=== PATIENT | male | born 1965 | race Caucasian/White ===

== ENCOUNTER → 2016-07-23 | Outpatient (CLI) | payer OTHER | LOC: RAD 14:48 | PROVIDERS: ATTEND Physician Assistant | DX: R51 Headache (principal) | CPT/HCPCS: 70450 ==

== ENCOUNTER 2016-08-06 04:49 | Emergency (ER) | payer OTHER, BC ==
[2016-08-06] MEDS ORDERED: KETOROLAC TROMETHAMINE 60 MG/2 ML SDV IM ONE (07:47)
[2016-08-06] MEDS ORDERED: DIPHENHYDRAMINE HCL 50 MG CAPSULE PO ONE (07:47)
[2016-08-06] MEDS ORDERED: PROCHLORPERAZINE MALEATE 10 MG TABLET PO ONE (07:47)
--- NOTE | 2016-08-06 07:52 | ER Document Report ---
ED General - General Chief Complaint: Headache Stated Complaint: HEAD INJURY Mode of Arrival: Ambulatory Information source: Patient Notes: 50-year-old male presents to weeks after head injury where he struck his head on concrete. Patient was initially evaluated by his primary care physician noted to have no acute life-threatening issues, was given follow-up with neurologist. Patient has been unable to see the neurologist yet due to scheduling issues. Patient admits to intermittent blurry vision denies any nausea vomiting or neurological deficits admits to constant headache TRAVEL OUTSIDE OF THE U.S. IN LAST 30 DAYS: No - HPI Onset: Other Onset/Duration: Persistent Quality of pain: Achy Severity: Mild Pain Level: 1 Associated symptoms: Headache Exacerbated by: Denies Relieved by: Denies Similar symptoms previously: Yes Recently seen / treated by doctor: Yes - Related Data Allergies/Adverse Reactions: Penicillins Allergy (Verified 12/12/13 12:10) acetaminophen [From Percocet] Adverse Reaction (Verified 08/06/16 05:00) oxycodone [From Percocet] Adverse Reaction (Verified 08/06/16 05:00) Past Medical History - Social History Smoking Status: Never Smoker Cigarette use (# per day): No Chew tobacco use (# tins/day): No Smoking Education Provided: No Frequency of alcohol use: Occasional Drug Abuse: None Family History: Reviewed & Not Pertinent Patient has suicidal ideation: No Patient has homicidal ideation: No Renal/ Medical History: Denies: Hx Peritoneal Dialysis Review of Systems - Review of Systems Notes: REVIEW OF SYSTEMS: CONSTITUTIONAL : Denies fever, chills, or sweats. Denies recent illness. EENT: Denies eye, ear, throat, or mouth pain or symptoms. Denies nasal or sinus congestion or discharge. Denies throat, tongue, or mouth swelling or difficulty swallowing. CARDIOVASCULAR: Denies chest pain. Denies palpitations or racing or irregular heart beat. Denies ankle edema. RESPIRATORY: Denies cough, cold, or chest congestion. Denies shortness of breath, difficulty breathing, or wheezing. GASTROINTESTINAL: Denies abdominal pain or distention. Denies nausea, vomiting , or diarrhea. Denies blood in vomitus, stools, or per rectum. Denies black, tarry stools. Denies constipation. GENITOURINARY: Denies difficulty urinating, painful urination, burning, frequency, blood in urine, or discharge. MUSCULOSKELETAL: Denies back or neck pain or stiffness. Denies joint pain or swelling. SKIN: Denies rash, lesions or sores. HEMATOLOGIC : Denies easy bruising or bleeding. LYMPHATIC: Denies swollen, enlarged glands. NEUROLOGICAL: Admits to headache blurry vision PSYCHIATRIC: Denies anxiety or stress. Denies depression, suicidal ideation, or homicidal ideation. ALL OTHER SYSTEMS REVIEWED AND NEGATIVE. Dictation was performed using [employer] voice recognition software PHYSICAL EXAMINATION: GENERAL: Well-appearing, well-nourished and in no acute distress. HEAD: Atraumatic, normocephalic. EYES: Pupils equal round and reactive to light, extraocular movements intact, sclera anicteric, conjunctiva are normal. ENT: Nares patent, oropharynx clear without exudates. Moist mucous membranes. NECK: Normal range of motion, supple without lymphadenopathy LUNGS: Breath sounds clear to auscultation bilaterally and equal. No wheezes rales or rhonchi. HEART: Regular rate and rhythm without murmurs ABDOMEN: Soft, nontender, nondistended abdomen. No guarding, no rebound. No masses appreciated. Musculoskeletal: Normal range of motion, no pitting or edema. No cyanosis. NEUROLOGICAL: Cranial nerves grossly intact. Normal speech, normal gait. Normal sensory, motor exams PSYCH: Normal mood, normal affect. SKIN: Warm, Dry, normal turgor, no rashes or lesions noted. Physical Exam - Vital signs Vitals: Temp Pulse Resp BP Pulse Ox 97.7 F 83 16 173/105 H 100 08/06/16 04:57 08/06/16 04:57 08/06/16 04:57 08/06/16 04:57 08/06/16 04:57 Course - Re-evaluation Re-evalutation: 08/06/16 07:[address] of the head noted no acute abnormality. I believe patient is having concussion-like syndrome secondary to the head injury. He will be treated with medication here, I did contact the primary care office requesting that they see the patient sooner After performing a Medical Screening Examination, I estimate there is LOW risk for ACUTE GLAUCOMA, TEMPORAL ARTERITIS, MENINGITIS, INCRANIAL HEMORRHAGE, or ISCHEMIC STROKE thus I consider the discharge disposition reasonable. The patient and I have discussed the diagnosis and risks, and we agree with discharging home with close follow-up with the understanding that symptoms and presentations can change. We also discussed returning to the Emergency Department immediately if new or worsening symptoms occur. We have discussed the symptoms which are most concerning (e.g., changing or worsening symptoms, new numbness or weakness, vomiting, fever) that necessitate immediate return. - Vital Signs Vital signs: Temp Pulse Resp BP Pulse Ox 97.7 F 87 16 159/98 H 100 08/06/16 04:57 08/06/16 04:58 08/06/16 04:57 08/06/16 04:58 08/06/16 04:57 Discharge - Discharge Clinical Impression: Concussion Qualifiers: Encounter type: initial encounter Loss of consciousness presence/duration: without LOC Qualified Code(s): S06.0X0A - Concussion without loss of consciousness, initial encounter Head injury Qualifiers: Encounter type: initial encounter Qualified Code(s): S09.90XA - Unspecified injury of head, initial encounter Condition: Stable Disposition: HOME, SELF-CARE Instructions: Headache ([facility]) Additional Instructions: Follow up with your physician tomorrow for further care or return to the ED IMMEDIATELY if symptoms worsen or new concerns occur Prescriptions: Diphenhydramine HCl [Benadryl 50 mg Capsule] 1 cap PO Q6 PRN #14 capsule PRN Reason: Promethazine HCl [Phenergan 25 mg Tablet] 25 - 50 mg PO ASDIR PRN #12 tablet PRN Reason:
[2016-08-06 08:28] VITALS: BP 176/105
== END 2016-08-06 08:32 | disposition home or self-care (01) ==
LOC: ER 04:49
DX: S06.0X0A Concussion without loss of consciousness, initial encounter (principal); R51 Headache; H53.8 Other visual disturbances; W22.09XA Striking against other stationary object, initial encounter; Y99.0 Civilian activity done for income or pay; Z88.0 Allergy status to penicillin; Z88.6 Allergy status to analgesic agent
CPT/HCPCS: 99284; 96372; 70450; J1885; S0183

== ENCOUNTER 2016-12-07 13:47 | Emergency (ER) | payer OTHER ==
--- NOTE | 2016-12-07 14:23 | ER Document Report ---
ED Medical Screen (RME) - General Chief Complaint: Syncope Stated Complaint: DIZZINESS Time Seen by Provider: 12/07/16 14:13 Mode of Arrival: Ambulatory Information source: Patient, Relative TRAVEL OUTSIDE OF THE U.S. IN LAST 30 DAYS: No - HPI Onset: This morning Onset/Duration: Sudden Context: GOT UP TO TAKE USUAL A.M. MEDS, HAD SUDDEN UNEXPECTED SYNCOPAL EPISODE. Quality of pain: No pain Severity: None Associated Symptoms: Dizzy/lightheaded. denies: Chest pain, Headache, Shortness of breath Exacerbated by: Denies Relieved by: Denies Similar symptoms previously: No Recently seen / treated by doctor: No - Related Data Allergies/Adverse Reactions: Penicillins Allergy (Verified 12/07/16 14:00) acetaminophen [From Percocet] Adverse Reaction (Verified 12/07/16 14:00) oxycodone [From Percocet] Adverse Reaction (Verified 12/07/16 14:00) Past Medical History - General Information source: Patient, Relative - Past Medical History Cardiac Medical History: Reports: None, Hx Hypercholesterolemia, Hx Hypertension Renal/ Medical History: Denies: Hx Peritoneal Dialysis Musculoskeltal Medical History: Reports Hx Arthritis Psychiatric Medical History: Reports: None Traumatic Medical History: Reports: Other - CONCUSSION 07/23/2016 - Immunizations Hx Diphtheria, Pertussis, Tetanus Vaccination: Yes Review of Systems - Review of Systems Constitutional: See HPI EENT: No symptoms reported Cardiovascular: Syncope Respiratory: No symptoms reported Gastrointestinal: No symptoms reported Musculoskeletal: No symptoms reported Neurological/Psychological: See HPI Physical Exam - Vital signs Vitals: Temp Pulse Resp BP Pulse Ox 97.6 F 71 22 H 141/76 H 100 12/07/16 13:50 12/07/16 13:50 12/07/16 13:50 12/07/16 13:50 12/07/16 13:50 Interpretation: Hypertensive, Tachypneic. No: Hypoxic - General General appearance: Appears well, Alert In distress: None - HEENT Head: No: Atraumatic - TENDER & CONTUSED L. UPPER / LATERAL ORBITAL RIM, Open wounds Eyes: Normal Conjunctiva: Normal Ears: Normal Nasal: Normal Mouth/Lips: Normal Pharynx: Normal Neck: Normal - Respiratory Respiratory status: No respiratory distress - Cardiovascular Rhythm: Regular Heart sounds: Normal auscultation - Abdominal Inspection: Normal - Extremities General upper extremity: Normal inspection General lower extremity: Normal inspection. No: Edema - Neurological Neuro grossly intact: Yes Cognition: Normal Orientation: AAOx4 - Psychological Associated symptoms: Normal affect, Normal mood - Skin Skin Temperature: Warm Skin Moisture: Dry Skin Color: Normal Skin Turgor: Elastic Course - Vital Signs Vital signs: Temp Pulse Resp BP Pulse Ox 97.6 F 71 22 H 141/76 H 100 12/07/16 13:50 12/07/16 13:50 12/07/16 13:50 12/07/16 13:50 12/07/16 13:50
[2016-12-07 14:26] LABS: ABSOLUTE EOSINOPHILS # (AUTO) 0.1 10^3/uL (0.0-0.6); ABSOLUTE LYMPHOCYTES (AUTO) 1.1 10^3/uL (0.5-4.7); ABSOLUTE MONOCYTES (AUTO) 0.7 10^3/uL (0.1-1.4); ABSOLUTE NEUT (AUTO) 5.1 10^3/uL (1.7-8.2); BASOPHILS % (AUTO) 0.2 % (0-2); HEMATOCRIT 37.3 % (37.9-51.0); HEMOGLOBIN 12.7 g/dL (13.5-17.0); HGB HCT DIFFERENCE 0.8; LYMPHOCYTES % (AUTO) 15.4 % (13-45); MEAN CORPUSCULAR HEMOGLOBIN 31.1 pg (27.0-33.4); MEAN CORPUSCULAR HGB CONC 33.9 g/dL (32.0-36.0); MEAN CORPUSCULAR VOLUME 92 fl (80-97); MONOCYTES % (AUTO) 10.3 % (3-13); RED BLOOD COUNT 4.08 10^6/uL (4.35-5.55); RED CELL DISTRIBUTION WIDTH 12.6 % (11.5-14.0); SEGMENTED NEUTROPHILS % (AUTO) 73.1 % (42-78)
[2016-12-07 14:32] LABS: APPEARANCE,URINE CLEAR; BILIRUBIN,URINE NEGATIVE (NEGATIVE); GLUCOSE, URINE 50 mg/dL (NEGATIVE); KETONES,URINE TRACE mg/dL (NEGATIVE); LEUKOCYTE ESTERASE,URINE NEGATIVE (NEGATIVE); NITRITE,URINE NEGATIVE (NEGATIVE); PROTEIN,URINE NEGATIVE (NEGATIVE); URINE SPECIFIC GRAVITY 1.018; UROBILINOGEN,URINE NEGATIVE mg/dL (<2.0)
[2016-12-07 14:49] LABS: ALANINE AMINOTRANSFERASE 55 U/L (21-72); ALBUMIN 4.4 g/dL (3.5-5.0); ALKALINE PHOSPHATASE 81 U/L (38-126); ANION GAP 11 (5-19); ASPARTATE AMINO TRANSFERASE 53 U/L (17-59); BILIRUBIN,DIRECT 0.4 mg/dL (0.0-0.4); BILIRUBIN,TOTAL 0.9 mg/dL (0.2-1.3); BLOOD UREA NITROGEN 18 mg/dL (7-20); CALCIUM 9.3 mg/dL (8.4-10.2); CARBON DIOXIDE 27 mmol/L (22-30); CHLORIDE 102 mmol/L (98-107); CREATINE KINASE 215 U/L (55-170); CREATININE RESULT 0.84 mg/dL (0.52-1.25); GLUCOSE 168 mg/dL (75-110); POTASSIUM 5.4 mmol/L (3.6-5.0); SODIUM 140.2 mmol/L (137-145); TOTAL PROTEIN 7.1 g/dL (6.3-8.2)
--- NOTE | 2016-12-07 14:53 | ER Document Report ---
ED Dizziness/Weakness - General Mode of Arrival: Ambulatory Information source: Patient TRAVEL OUTSIDE OF THE [place] IN LAST 30 DAYS: No - HPI Patient complains to provider of: Syncope Onset: Other - Refer to HPI notes <TIM SEPULVEDA - Last Filed: 12/07/16 15:55> <VLADLANDON - Last Filed: 12/08/16 22:50> - General Chief Complaint: Syncope Stated Complaint: DIZZINESS Time Seen by Provider: 12/07/16 14:13 Notes: Patient is a 51 year old male presenting to the emergency department after syncope episode. Patient states he passed out this morning and hit his head and right shoulder. Patient also has dizziness. Patient only remembers getting up this morning to eat breakfast and take his medications. Patient states he felt dizzy and remembers taking his medications and then remembers waking up on the floor in the hallway with his over. Spouse states she came to him in about 30 seconds and did not see any seizure activity. Patient took about 3-4 minutes to come to after the syncopal event. Spouse states the patient was clammy, sweaty, and asking what happened. Patient was leaning on spouse afterwards and had unsteady gait. Patient was fine last night with no symptoms. Patient has been having headaches due to a previous concussion and he currently complains of a headache now. Patient had an accident at work in July where he hit his head on the ground and a washing machine landed on top of his head and he got a concussion. Patient has seen a neurologist for this, he has had an MRI, and has a follow up with a TBI doctor on . Patient has recurrent headaches and states his head is pounding bad right now. Patient has a knot on his head from falling and also complains of right shoulder pain. Patient's last PO was this morning. PCP is Dr. Waggoner in [place]. (TIM SEPULVEDA) - Related Data Allergies/Adverse Reactions: Penicillins Allergy (Verified 12/07/16 14:00) acetaminophen [From Percocet] Adverse Reaction (Verified 12/07/16 14:00) oxycodone [From Percocet] Adverse Reaction (Verified 12/07/16 14:00) Past Medical History - General Information source: Patient, Relative - Social History Smoking Status: Unknown if Ever Smoked Family History: None Patient has suicidal ideation: No Patient has homicidal ideation: No - Past Medical History Cardiac Medical History: Reports: Hx Hypercholesterolemia, Hx Hypertension Endocrine Medical History: Reports: Hx Diabetes Mellitus Type 1 Musculoskeltal Medical History: Reports Hx Arthritis Traumatic Medical History: Reports: Other - CONCUSSION 07/23/2016 Past Surgical History: Reports: None - Immunizations Hx Diphtheria, Pertussis, Tetanus Vaccination: Yes <TIM SEPULVEDA - Last Filed: 12/07/16 15:55> Review of Systems - Review of Systems Constitutional: No symptoms reported EENT: No symptoms reported Cardiovascular: No symptoms reported Respiratory: No symptoms reported Gastrointestinal: No symptoms reported Genitourinary: No symptoms reported Male Genitourinary: No symptoms reported Musculoskeletal: See HPI Skin: No symptoms reported Hematologic/Lymphatic: No symptoms reported Neurological/Psychological: See HPI, Lost consciousness, Headaches -: Yes All other systems reviewed and negative <TIM SEPULVEDA - Last Filed: 12/07/16 15:55> Physical Exam <TIM SEPULVEDA - Last Filed: 12/07/16 15:55> <LANDON CHU - Last Filed: 12/08/16 22:50> - Vital signs Vitals: Temp Pulse Resp BP Pulse Ox 97.6 F 71 22 H 141/76 H 100 12/07/16 13:50 12/07/16 13:50 12/07/16 13:50 12/07/16 13:50 12/07/16 13:50 - Notes Notes: GENERAL: Alert, interacts well. Mild distress. HEAD: Normocephalic, small hematoma consistent with fall. EYES: Appear normal. Pupils equal, round, and reactive to light. ENT: Moist mucus membranes, tongue midline. NECK: Full range of motion. Supple. Trachea midline. LUNGS: Clear to auscultation bilaterally, no wheezes, rales, or rhonchi. No respiratory distress. HEART: Regular rate and rhythm. No murmurs, gallops, or rubs. ABDOMEN: Soft, non-tender. Non-distended. Normal bowel sounds. EXTREMITIES: Moves all 4 extremities spontaneously. Tenderness to palpation over the right posterior shoulder and scapula. Normal strength. No edema. NEUROLOGICAL: Alert and oriented x3. Normal speech. No focal neurological deficits. GSC 15. PSYCH: Normal affect, normal mood. SKIN: Warm, dry, normal turgor. No rashes or lesions noted. (COCOTIM) Course - Laboratory Result Diagrams: 12/07/16 14:05 12/07/16 14:05 <TIM SEPULVEDA - Last Filed: 12/07/16 15:55> - Laboratory Result Diagrams: 12/07/16 14:05 12/07/16 14:05 <LANDON CHU - Last Filed: 12/08/16 22:50> - Re-evaluation Re-evalutation: 12/07/16 16:05 Presents to the emergency department chief complaint syncope. According to the and he got up his insulin dependent diabetic weight made himself some breakfast felt a little lightheaded dizzy did felt that way before bed as well and next thing you know he said he hit the ground. She heard a thump and came to see him. She said his eyes rolled in the back of his head he was not seizing there is no loss of bowel or bladder function and she sat him up got him up with assistance and said he regained back to normal about 3-4 minutes later. There is no strokelike symptoms slurred speech weakness on one side of body versus the other is able to ambulate at that point. Back in July of this year he suffered a brain injury after falling off the back of an 18 keating and then having a washing machine hit him in the head as well. He is been unable to work since then has been caring chronic daily headaches has seen a neurologist had an MRI. He is scheduled to see a TBI specialist on . He states the headache he is having right now is the same character quality frequency duration is previous once blood pressure stable vitals are stable he does not complain any chest pain shortness of breath usual nauseated and said that has been going well with a head injury as well. He complained of some shoulder pain he was tender in the back of the shoulder region no obvious deformity good pulses and perfusion x-ray showed 2 rib fractures on the right he did not have any pain in that area until I palpated on it. The shoulder itself was fine EKG was nonacute chest x-ray was negative. Do not clinically think that this was an [place] dissection or pulmonary embolism. In some medicine that he can take for the shoulder discomfort he can follow primary care physician on Friday PBI specialist on and discuss specific reasons for ED return sooner may need need outpatient workup for seizure and this is not classic in nature. (LANDON CHU) - Vital Signs Vital signs: Temp Pulse Resp BP Pulse Ox 97.8 F 64 17 132/87 H 98 12/07/16 16:30 12/07/16 15:14 12/07/16 16:30 12/07/16 16:30 12/07/16 16:30 - Laboratory Laboratory results interpreted by me: 12/07/16 12/07/16 12/07/16 14:05 14:05 14:05 RBC 4.08 L Hgb 12.7 L Hct 37.3 L Potassium 5.4 H Glucose 168 H Creatine Kinase 215 H Urine Glucose (UA) 50 H Urine Ketones TRACE H Urine Ascorbic Acid 40 H Critical Care Note - Critical Care Note Total time excluding time spent on procedures (mins): 45 <LANDON CHU - Last Filed: 12/08/16 22:50> Discharge <TIM SEPULVEDA - Last Filed: 12/07/16 15:55> <LANDON CHU - Last Filed: 12/08/16 22:50> - Discharge Clinical Impression: rib fractures Syncope Qualifiers: Syncope type: unspecified Qualified Code(s): R55 - Syncope and collapse Condition: Stable Disposition: HOME, SELF-CARE Additional Instructions: Rib Injuries and Fractures You have been diagnosed as having either bruised or broken ribs. These two injuries are treated in the same way. It will usually take four to six weeks for these injured ribs to heal. Sometimes, rib belts or anesthetic injections of the chest wall help reduce the pain. If you are using a rib belt, you should cough or take a deep breath at least every hour or two to prevent lung complications. You should not engage in any strenuous physical activity until released by your physician. The usual rule is "if it hurts, don't do it." Rib fractures can lead to serious lung complications including lung collapse, hemorrhage, and pneumonia. You should call the physician or return at once if any of the following occur: (1) Fever or chills. (2) Persistent cough, coughing up blood, or shortness of breath. (3) Increasing pain. (4) Weakness, lightheadedness, or fainting. Syncopal Episode Syncope (fainting or near-fainting) can occur from many different health problems. Or it can be a simple fainting spell requiring no treatment. It is safe for you to go home, but further evaluation will likely be necessary. Your work-up may include tests for internal bleeding, heart disease, medication problems, or near-strokes. Tests are not always required, however, depending on the nature of your problem. The warning signs of an impending faint include: dizziness, lightheadedness , nausea, hot flashes, tingling, and weakness. If this happens, lay down and put your feet up, then wait until all of these symptoms have passed before standing up again. If these episodes become recurrent, or if you develop chest pain, heart palpitations, mental confusion, blurred vision, or headache, then you should call the physician, or go to the emergency room. Follow-up with your TBI specialist on as scheduled your primary care physician on Friday return for increasing worsening or new symptoms do not drive or operate machinery return for any additional concerns Prescriptions: Hydrocodone/Acetaminophen [[place] 5-325 mg Tablet] 1 tab PO TID #12 tablet Scribe Attestation: 12/07/16 16:05 I personally performed the services described in the documentation reviewed the documentation recorded by my scribe in my presence and it accurately and completely records my words and actions (LANDON CHU) Scribe Documentation - Scribe Written by Adry:: Adry Caballero 12/07/16 16:00 acting as scribe for :: Vlad <TIM SEPULVEDA - Last Filed: 12/07/16 15:55>
[2016-12-07 15:09] LABS: CREATINE KINASE MB 2.78 ng/mL (<4.55); TROPONIN I < 0.012 ng/mL
--- NOTE | 2016-12-07 15:26 | RADIOLOGY REPORT (SQ) ---
EXAM DESCRIPTION: CHEST SINGLE VIEW COMPLETED DATE/TIME: 12/07/2016 3:16 pm REASON FOR STUDY: SYNCOPE COMPARISON: None. EXAM PARAMETERS: NUMBER OF VIEWS: One view. TECHNIQUE: Single frontal radiographic view of the chest acquired. RADIATION DOSE: NA LIMITATIONS: None. FINDINGS: LUNGS AND PLEURA: No opacities, masses or pneumothorax. No pleural effusion. MEDIASTINUM AND HILAR STRUCTURES: No masses. Contour normal. HEART AND VASCULAR STRUCTURES: Heart normal in size. Normal vasculature. BONES: No acute findings. HARDWARE: None in the chest. OTHER: No other significant finding. IMPRESSION: NO ACUTE RADIOGRAPHIC FINDING IN THE CHEST. TECHNICAL DOCUMENTATION: JOB ID: [id number]
--- NOTE | 2016-12-07 15:40 | RADIOLOGY REPORT (SQ) ---
EXAM DESCRIPTION: SHOULDER RIGHT 2 OR MORE VIEWS COMPLETED DATE/TIME: 12/07/2016 3:30 pm REASON FOR STUDY: FALL COMPARISON: None. NUMBER OF VIEWS: Three views. TECHNIQUE: Internal rotation, external rotation, and Y view images acquired of the right shoulder. LIMITATIONS: None. FINDINGS: MINERALIZATION: Normal. BONES: No acute fracture or dislocation. No worrisome bone lesions. JOINTS: No dislocation. VISUALIZED LUNGS AND RIBS: No pneumothorax. Right lateral 4th and possibly 5th rib fractures. SOFT TISSUES: No radiopaque foreign body. OTHER: No other significant finding. IMPRESSION: FRACTURES OF THE RIGHT LATERAL 4TH AND POSSIBLY RIGHT LATERAL 5TH RIBS. NO ACUTE INJURY OF THE RIGHT SHOULDER. TECHNICAL DOCUMENTATION: JOB ID: [id number] [employer]- All Rights Reserved
--- NOTE | 2016-12-07 15:43 | RADIOLOGY REPORT (SQ) ---
EXAM DESCRIPTION: CT HEAD WITHOUT COMPLETED DATE/TIME: 12/07/2016 3:35 pm REASON FOR STUDY: SYNCOPE COMPARISON: 08/06/2016 TECHNIQUE: Axial images acquired through the brain without intravenous contrast. Images reviewed wi th bone, brain and subdural windows. Images stored on PACS. All CT scanners at this facility use dose modulation, iterative reconstruction, and/or weight based d osing when appropriate to reduce radiation dose to as low as reasonably achievable (ALARA). [facility]: Dose Right [facility]: CareDose [facility]: Dose Right [facility]: Teradose 4D [facility]: [employer] RADIATION DOSE: Up-to-date CT equipment and radiation dose reduction techniques were employed. CTDIv ol: 64.6 mGy. DLP: 1163 mGy-cm. mGy. LIMITATIONS: None. FINDINGS: VENTRICLES: Normal size and contour. CEREBRUM: No masses. No hemorrhage. No midline shift. Normal calzada/white matter differentiation. N o evidence for acute infarction. CEREBELLUM: No masses. No hemorrhage. No alteration of density. No evidence for acute infarction. EXTRAAXIAL SPACES: No fluid collections. No masses. ORBITS AND GLOBE: No intra- or extraconal masses. Normal contour of globe without masses. CALVARIUM: No fracture. PARANASAL SINUSES: No fluid or mucosal thickening. SOFT TISSUES: No mass or hematoma. OTHER: No other significant finding. IMPRESSION: NO ACUTE INTRACRANIAL PROCESS. NO SIGNIFICANT CHANGE FROM PRIOR STUDY. TECHNICAL DOCUMENTATION: JOB ID: [id number] Quality ID # [id number]: Final reports with documentation of one or more dose reduction techniques (e.g., Au tomated exposure control, adjustment of the mA and/or kV according to patient size, use of iterative reconstruction technique) 2010 [employer]- All Rights Reserved
[2016-12-07] MEDS ORDERED: ONDANSETRON 4 MG TAB.RAPDIS PO ONE (15:52)
[2016-12-07] MEDS ORDERED: OXYCODONE-ACETAMINOPHEN 5-325 MG TABLET PO ONE (15:57)
[2016-12-07 16:38] VITALS: BP 132/87
--- NOTE | 2016-12-08 13:52 | EKG REPORT ---
SEVERITY:- NORMAL ECG - SINUS RHYTHM : Confirmed by: Beth Bar MD 08-Dec-2016 13:52:00
== END 2016-12-07 16:38 | disposition home or self-care (01) ==
LOC: ER 13:47
DX: S22.31XA Fracture of one rib, right side, initial encounter for closed fracture (principal); S09.90XA Unspecified injury of head, initial encounter; R55 Syncope and collapse; R42 Dizziness and giddiness; M25.511 Pain in right shoulder; W19.XXXA Unspecified fall, initial encounter
CPT/HCPCS: 93005; 99291; 36415; 82553; 82550; 85025; 80053; 81001; 84484; 71010; 73030; 70450; 93010; S0119

== ENCOUNTER 2017-07-24 18:51 | Emergency (ER) | payer OTHER ==
[2017-07-24 19:19] VITALS: BP 127/80
[2017-07-24] MEDS ORDERED: MELOXICAM 7.5 MG TABLET PO ONE (19:26)
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
== END 2017-07-24 19:37 | disposition home or self-care (01) ==
LOC: ER 18:51
DX: R51 Headache (principal); I10 Essential (primary) hypertension; E10.9 Type 1 diabetes mellitus without complications; Z88.0 Allergy status to penicillin
CPT/HCPCS: 99283

== ENCOUNTER 2017-08-07 07:26 | Emergency (ER) | payer BC, OTHER ==
[2017-08-07] MEDS ORDERED: METOCLOPRAMIDE HCL INJ/PF 10 MG/2 ML SDV IV ONE (08:04)
[2017-08-07] MEDS ORDERED: DIPHENHYDRAMINE HCL 50 MG/ML VIAL IV ONE (08:04)
[2017-08-07] MEDS ORDERED: KETOROLAC TROMETHAMINE INJ/PF 30 MG/1 ML SDV IV ONE (08:04)
[2017-08-07] MEDS ORDERED: NORMAL SALINE 1000 ML 1,000 ML IV ONE (08:04)
[2017-08-07 08:05] LABS: ABSOLUTE LYMPHOCYTES (AUTO) 0.9 10^3/uL (0.5-4.7); ABSOLUTE MONOCYTES (AUTO) 1.3 10^3/uL (0.1-1.4); ABSOLUTE NEUT (AUTO) 12.6 10^3/uL (1.7-8.2); BASOPHILS % (AUTO) 0.2 % (0-2); HEMATOCRIT 41.3 % (37.9-51.0); HEMOGLOBIN 13.5 g/dL (13.5-17.0); LYMPHOCYTES % (AUTO) 6.2 % (13-45); MEAN CORPUSCULAR HEMOGLOBIN 29.8 pg (27.0-33.4); MEAN CORPUSCULAR HGB CONC 32.8 g/dL (32.0-36.0); MEAN CORPUSCULAR VOLUME 91 fl (80-97); MONOCYTES % (AUTO) 8.7 % (3-13); PLATELET COUNT 242 10^3/uL (150-450); RED BLOOD COUNT 4.55 10^6/uL (4.35-5.55); RED CELL DISTRIBUTION WIDTH 12.4 % (11.5-14.0); SEGMENTED NEUTROPHILS % (AUTO) 84.9 % (42-78); TOTAL CELLS COUNTED % (AUTO) 100 %; WHITE BLOOD COUNT 14.8 10^3/uL (4.0-10.5)
[2017-08-07 08:08] LABS: ALANINE AMINOTRANSFERASE 52 U/L (21-72); ALBUMIN 4.8 g/dL (3.5-5.0); ALKALINE PHOSPHATASE 74 U/L (38-126); ANION GAP 18 (5-19); ASPARTATE AMINO TRANSFERASE 41 U/L (17-59); BILIRUBIN,DIRECT 0.2 mg/dL (0.0-0.4); BILIRUBIN,TOTAL 0.4 mg/dL (0.2-1.3); BLOOD UREA NITROGEN 22 mg/dL (7-20); CALCIUM 10.3 mg/dL (8.4-10.2); CARBON DIOXIDE 23 mmol/L (22-30); CHLORIDE 106 mmol/L (98-107); GLUCOSE 98 mg/dL (75-110); POTASSIUM 4.3 mmol/L (3.6-5.0); SODIUM 147.2 mmol/L (137-145); TOTAL PROTEIN 7.4 g/dL (6.3-8.2)
--- NOTE | 2017-08-07 08:09 | ER Document Report ---
ED Dizziness/Weakness - General Chief Complaint: Dizziness Stated Complaint: DIZZINESS Time Seen by Provider: 08/07/17 07:47 Notes: The patient is a 51-year-old male, past medical history insulin-dependent diabetic, chronic headaches from a TBI last year, presents by EMS from home after he was found to be lightheaded earlier today. Patient took his insulin last night, but did not eat a full dinner. His sugar was found to be in the 20s by EMS prior to arrival and he was given 10 mg D10 IV with improvement of his blood sugar to 150. He feels much better, but is still having a dull diffuse headache, which he has had multiple times in the past after his TBI and has seen a neurologist in [place]. Patient said headache cocktail has helped him before. He denies focal weakness, numbness, tingling, increase of his insulin dose, nausea, vomiting, abdominal pain, blurry vision, fevers or neck stiffness. TRAVEL OUTSIDE OF THE [place] IN LAST 30 DAYS: No - Related Data Allergies/Adverse Reactions: Penicillins Allergy (Verified 07/24/17 18:53) acetaminophen [From Percocet] Adverse Reaction (Verified 07/24/17 18:53) oxycodone [From Percocet] Adverse Reaction (Verified 07/24/17 18:53) Past Medical History - General Information source: Patient - Social History Smoking Status: Unknown if Ever Smoked Family History: None - Past Medical History Cardiac Medical History: Reports: Hx Hypercholesterolemia, Hx Hypertension Endocrine Medical History: Reports: Hx Diabetes Mellitus Type 1 Renal/ Medical History: Denies: Hx Peritoneal Dialysis Musculoskeltal Medical History: Reports Hx Arthritis - Immunizations Hx Diphtheria, Pertussis, Tetanus Vaccination: Yes Review of Systems - Review of Systems Notes: REVIEW OF SYSTEMS: CONSTITUTIONAL: -fevers, -chills EENT: -eye pain, -difficulty swallowing, -nasal congestion CARDIOVASCULAR: -chest pain, -syncope. RESPIRATORY: -cough, -SOB GASTROINTESTINAL: -abdominal pain, -nausea, -vomiting, -diarrhea GENITOURINARY: -dysuria, -hematuria MUSCULOSKELETAL: -back pain, -neck pain SKIN: -rash or skin lesions. HEMATOLOGIC: -easy bruising or bleeding. LYMPHATIC: -swollen, enlarged glands. NEUROLOGICAL: -altered mental status or loss of consciousness, +headache, - neurologic symptoms PSYCHIATRIC: -anxiety, -depression. ALL OTHER SYSTEMS REVIEWED AND NEGATIVE. Physical Exam - Notes Notes: PHYSICAL EXAMINATION: GENERAL: Well-appearing, well-nourished and in no acute distress. HEAD: Atraumatic, normocephalic. EYES: Pupils equal round and reactive to light, extraocular movements intact, sclera anicteric, conjunctiva are normal. ENT: nares patent, oropharynx clear without exudates. Moist mucous membranes. NECK: Normal range of motion, supple without lymphadenopathy LUNGS: Breath sounds clear to auscultation bilaterally and equal. No wheezes rales or rhonchi. HEART: Regular rate and rhythm without murmurs ABDOMEN: Soft, nontender, normoactive bowel sounds. No guarding, no rebound. No masses appreciated. EXTREMITIES: Normal range of motion, no pitting or edema. No cyanosis. NEUROLOGICAL: Cranial nerves grossly intact. Normal speech, normal gait. Normal sensory and motor exams. PSYCH: Normal mood, normal affect. SKIN: Warm, Dry, normal turgor, no rashes or lesions noted. Course - Re-evaluation Re-evalutation: Patient's headache is exactly the same as his prior headaches and are related to his TBI that he sustained last year. His symptoms are not typical for SAH, ICH, meningitis or CVA at this time. Patient also was hypoglycemic earlier this morning and most likely occurred from not eating a full dinner and taking his full course of insulin. He was monitored in the ER, provided with breakfast and his sugar did not drop. His kidney function is normal and he has a slight leukocytosis, but no evidence of infection. Suspect this is a stress response from his severe hypoglycemia. After his headache cocktail and breakfast, he feels much better and is requesting discharge. Instructed him to continue to eat full meals and follow-up with his neurologist and primary care physician. Given very strict return precautions and he understands. - Laboratory Result Diagrams: 08/07/17 07:38 08/07/17 07:38 Laboratory results interpreted by me: 08/07/17 08/07/17 07:38 07:38 WBC 14.8 H Seg Neutrophils % 84.9 H Lymphocytes % 6.2 L Absolute Neutrophils 12.6 H Sodium 147.2 H BUN 22 H Calcium 10.3 H Discharge - Discharge Clinical Impression: Hypoglycemia Headache Qualifiers: Headache type: unspecified Headache chronicity pattern: chronic headache Intractability: not intractable Qualified Code(s): R51 - Headache Condition: Stable Disposition: HOME, SELF-CARE Additional Instructions: HEADACHE: The physician does not feel that the headache you are experiencing has a serious underlying cause. Most headaches are due to emotional stress, with resultant muscle tension (tension headache). Occasionally, headaches are secondary to changes in the blood vessels of the scalp (vascular headache and migraine headache). Sometimes, a headache is the first symptom of another developing illness, such as a viral infection. You have no evidence of stroke, bleeding, meningitis, or other serious cause of your headache. The treatment of headaches varies with the severity and cause of the pain. Not all headaches need pain shots. In fact, there is evidence that using narcotics for headaches may make them worse in the long run. The physician will determine the therapy that's in your best interest. If you develop a fever, if the headache is different from any you've previously experienced, or if the headache progressively worsens, then call your physician at once or go to the emergency room. REGLAN (METOCLOPRAMIDE): Reglan has been prescribed. This medicine affects the stomach and intestines. It can be used to treat nausea and vomiting, to prevent reflux of stomach acid up into the esophagus, or to increase the contractions of the stomach and intestines. It is often prescribed for esophagitis, and for paralysis of the stomach in diabetics. Reglan can cause either mild restlessness or drowsiness. You should contact the doctor at once if you become extremely restless, anxious, or cannot sleep, or if you develop uncontrollable motions of the lips, tongue, or jaw. Do not take alcohol with this medicine. Do not drive or operate machinery until you have been taking this medicine long enough to know how it affects you. Call the doctor if you develop abdominal pains, lightheadedness, black stool, or blood in the stool or vomitus. USE OF DIPHENHYDRAMINE: Diphenhydramine (Benadryl) is an antihistamine and has been recommended to help treat your headache and to prevent side effects of other medications used to treat headaches. The medication can be repeated four times daily. Age Elixir (12.5 mg/tsp) 25 mg pill adult 1-2 tabs Antihistamines may cause drowsiness, especially with the first dose. Do not operate machinery or drive while under the effects of the medication. Do not combine the medication with alcohol, or with any other medication without talking to your doctor. TORADOL INJECTION: You have been given an injection of ketorolac tromethamine (Toradol). This is an excellent, safe drug for pain control. It also has potent antiinflammatory action. You should have significant pain relief within about one hour. Toradol is not addicting and is non-sedating. It does not interfere with driving or work. Call or return if you develop itching, hives, shortness of breath, or rash. FOLLOW-UP CARE: If you have been referred to a physician for follow-up care, call the physician s office for an appointment as you were instructed or within the next two days. If you experience worsening or a significant change in your symptoms, notify the physician immediately or return to the Emergency Department at any time for re-evaluation. Hypoglycemia You have suffered an episode of hypoglycemia (low blood sugar). Typical symptoms of hypoglycemia are shaking, sweating, headache, and confusion. When severe, unconsciousness or seizure may occur. Hypoglycemia occurs when a person taking insulin or diabetes pills has a change in the amount of blood sugar available -- due to exercise, decreased food intake, or alcohol. Should you feel symptoms of hypoglycemia again, immediately take some form of sugar such as sweetened juice. As the reaction subsides, eat a complex carbohydrate such as bread. If possible, check your blood sugar using a chemical strip. If episodes are occurring without obvious explanation, contact your physician for further evaluation. Hypoglycemia Diet The physician has recommended a special diet for hypoglycemia. The goal of this diet is to keep a steady supply of food energy, without sudden jumps in blood sugar. Divide your daily calories into six small meals. Meals should be high in complex carbohydrates -- starchy foods. Avoid fats. Eat plenty of vegetables. Include protein from both plants (beans, peas) and animals (skim milk, fish, poultry). Plan for a small high-protein bedtime snack. Eat slowly and chew thoroughly. Avoid any foods which put a lot of sugar into your system suddenly. Drink water rather than large glasses of fruit juice. Don't drink sugar-containing soda pop, and NO CANDY. Slightly-sweet natural foods, such as sweet potato, apples, bananas, and carrots, usually cause no problems.. Forms: Elevated Blood Pressure
[2017-08-07 10:22] VITALS: BP 145/97
== END 2017-08-07 10:26 | disposition home or self-care (01) ==
LOC: ER 07:26
DX: R51 Headache (principal); E10.649 Type 1 diabetes mellitus with hypoglycemia without coma; R42 Dizziness and giddiness; E78.00 Pure hypercholesterolemia, unspecified; I10 Essential (primary) hypertension; Z88.0 Allergy status to penicillin; Z88.6 Allergy status to analgesic agent; Z87.820 Personal history of traumatic brain injury; Z79.4 Long term (current) use of insulin
CPT/HCPCS: 99284; 96361; 96374; 96375; 36415; 82962; 85025; 80053; J1200; J1885; J2765; J7030

== ENCOUNTER 2017-09-15 06:51 | Inpatient (IN) | payer BC ==
[2017-09-15] MEDS ORDERED: VANCOMYCIN HCL INJ 1000 MG VIAL IV ONE (07:07)
[2017-09-15] MEDS ORDERED: CEFEPIME INJ 1 GM VIAL IV ONE (07:07)
[2017-09-15] MEDS ORDERED: NORMAL SALINE 1000 ML 1,000 ML IV ONE ×2 (07:07→09:56)
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
[2017-09-15 07:25] LABS: VENOUS BLOOD BASE EXCESS 1.7 mmol/L; VENOUS BLOOD HCO3 24.7 mmol/L (20-32); VENOUS BLOOD PCO2 33.8 mmHg (35-63); VENOUS BLOOD PH 7.48 (7.30-7.42)
[2017-09-15 07:32] LABS: INTERNATIONAL RATION (INR) 0.92; PROTHROMBIN TIME 12.8 SEC (11.4-15.4)
[2017-09-15 07:44] LABS: ALANINE AMINOTRANSFERASE 42 U/L (21-72); ALKALINE PHOSPHATASE 167 U/L (38-126); ANION GAP 16 (5-19); ASPARTATE AMINO TRANSFERASE 32 U/L (17-59); BILIRUBIN,DIRECT 0.4 mg/dL (0.0-0.4); BILIRUBIN,TOTAL 0.8 mg/dL (0.2-1.3); BLOOD UREA NITROGEN 17 mg/dL (7-20); CALCIUM 9.9 mg/dL (8.4-10.2); CARBON DIOXIDE 26 mmol/L (22-30); CHLORIDE 96 mmol/L (98-107); CREATINE KINASE 55 U/L (55-170); GLUCOSE 234 mg/dL (75-110); POTASSIUM 5.5 mmol/L (3.6-5.0); SODIUM 137.5 mmol/L (137-145); TOTAL PROTEIN 7.1 g/dL (6.3-8.2)
[2017-09-15 08:01] LABS: HEMATOCRIT 33.9 % (37.9-51.0); HEMOGLOBIN 11.4 g/dL (13.5-17.0); MEAN CORPUSCULAR HEMOGLOBIN 29.9 pg (27.0-33.4); MEAN CORPUSCULAR HGB CONC 33.7 g/dL (32.0-36.0); MEAN CORPUSCULAR VOLUME 89 fl (80-97); PLATELET COUNT 791 10^3/uL (150-450); RED BLOOD COUNT 3.82 10^6/uL (4.35-5.55); RED CELL DISTRIBUTION WIDTH 13.1 % (11.5-14.0); WHITE BLOOD COUNT 22.3 10^3/uL (4.0-10.5)
--- NOTE | 2017-09-15 08:14 | RADIOLOGY REPORT (SQ) ---
EXAM DESCRIPTION: CHEST SINGLE VIEW COMPLETED DATE/TIME: 09/15/2017 7:20 am REASON FOR STUDY: fever COMPARISON: 12/07/2016 EXAM PARAMETERS: NUMBER OF VIEWS: One view. TECHNIQUE: Single frontal radiographic view of the chest acquired. RADIATION DOSE: NA LIMITATIONS: Poor inspiratory effort. FINDINGS: LUNGS AND PLEURA: Small right pleural effusion and associated airspace disease. No pneumo thorax. MEDIASTINUM AND HILAR STRUCTURES: Stable. HEART AND VASCULAR STRUCTURES: Stable heart size. BONES: Multiple recent right post lateral rib fractures. HARDWARE: None in the chest. OTHER: No other significant finding. IMPRESSION: Small right pleural effusion and associated airspace disease. Recent rib fractures. No pneumothorax. TECHNICAL DOCUMENTATION: JOB ID: [id number] [employer]- All Rights Reserved Reading location - IP/workstation name: [email or web address]
[2017-09-15 08:23] LABS: ABSOLUTE LYMPHOCYTES# (MANUAL) 2.9 10^3/uL (0.5-4.7); ABSOLUTE MONOCYTES # (MANUAL) 1.6 10^3/uL (0.1-1.4); ABSOLUTE NEUTROPHILS# (MANUAL) 17.8 10^3/uL (1.7-8.2); BASOPHILS % (MANUAL) 0 % (0-2); EOSINOPHILS % (MANUAL) 0 % (0-6); LYMPHOCYTES % (MANUAL) 13 % (13-45); MONOCYTES % (MANUAL) 7 % (3-13); SEGMENTED NEUTROPHILS % (MAN) 80 % (42-78); TOTAL CELLS COUNTED 100
[2017-09-15 08:25] LABS: ANISOCYTOSIS SLIGHT; HYPOCHROMASIA SLIGHT; TOXIC VACUOLATION PRESENT
[2017-09-15 08:26] LABS: PLATELET COMMENT INCREASED
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
[2017-09-15] MEDS ORDERED: HYDROMORPHONE HCL 2 MG TABLET PO ONE (09:20)
[2017-09-15] MEDS ORDERED: CYCLOBENZAPRINE HCL 10 MG TABLET PO ONE (09:21)
[2017-09-15 10:25] LABS: APPEARANCE,URINE CLOUDY; BILIRUBIN,URINE NEGATIVE (NEGATIVE); COLOR,URINE YELLOW; GLUCOSE, URINE >=500 mg/dL (NEGATIVE); KETONES,URINE 20 mg/dL (NEGATIVE); LEUKOCYTE ESTERASE,URINE LARGE (NEGATIVE); NITRITE,URINE POSITIVE (NEGATIVE); PROTEIN,URINE 100 mg/dL (NEGATIVE); URINE SPECIFIC GRAVITY 1.029; UROBILINOGEN,URINE NEGATIVE mg/dL (<2.0)
[2017-09-15] MEDS ORDERED: DEXTROSE 50%-WATER 25 GM/50 ML DISP.SYRIN IV PRN ×2 (11:39)
[2017-09-15] MEDS ORDERED: DEXTROSE 40% GEL 15 GM TUBE PO PRN ×2 (11:39)
[2017-09-15] MEDS ORDERED: GLUCAGON,HUMAN RECOMB 1 MG INJ IM PRN (11:39)
[2017-09-15] MEDS ORDERED: BISACODYL 10 MG SUPP.RECT PR ONE (11:42)
[2017-09-15] MEDS ORDERED: VANCOMYCIN HCL 0 MG in DEXTROSE 5%-WATER 250 ML IV NR (11:45)
[2017-09-15] MEDS ORDERED: ENOXAPARIN SODIUM INJ 40 MG/0.4 ML DISP.SYRIN SUBCUT ONE ×2 (12:00→13:00)
[2017-09-15] MEDS: RINGERS SOLUTION,LACTATED 1,000 ML IV PRN ×2 (12:02→23:34)
--- NOTE | 2017-09-15 13:13 | EKG REPORT ---
SEVERITY:- BORDERLINE ECG - SINUS TACHYCARDIA PROBABLE LEFT ATRIAL ABNORMALITY BORDERLINE T ABNORMALITIES, INFERIOR LEADS : Confirmed by: Omero Jurado 15-Sep-2017 13:13:02
[2017-09-15 13:19] LABS: ANION GAP 9 (5-19); BLOOD UREA NITROGEN 16 mg/dL (7-20); CALCIUM 8.8 mg/dL (8.4-10.2); CARBON DIOXIDE 25 mmol/L (22-30); CHLORIDE 100 mmol/L (98-107); GLUCOSE 277 mg/dL (75-110); POTASSIUM 5.2 mmol/L (3.6-5.0); SODIUM 134.3 mmol/L (137-145)
[2017-09-15] MEDS: INSULIN LISPRO 100 UNIT/ML 3 ML VIAL SUBCUT PRN ×3 (13:52→21:55)
[2017-09-15] MEDS: CYCLOBENZAPRINE HCL 10 MG TABLET PO PRN ×2 (14:39→15:39)
[2017-09-15] MEDS: AZTREONAM 1 GM in DEXTROSE 5%-WATER 50 ML IV SCH ×2 (14:39→21:54)
[2017-09-15] MEDS: HYDROMORPHONE HCL 2 MG TABLET PO PRN ×2 (15:37→20:50)
[2017-09-15] MEDS: INSULIN LISPRO 100 UNIT/ML 3 ML VIAL SUBCUT SCH (16:28)
[2017-09-15] MEDS: VANCOMYCIN HCL 1,500 MG in DEXTROSE 5%-WATER 250 ML IV SCH ×2 (16:29→23:30)
[2017-09-15] MEDS: SENNOSIDES/DOCUSATE 8.6-50 MG 1 EACH TABLET PO SCH (18:37)
[2017-09-15] MEDS ORDERED: CYCLOBENZAPRINE HCL 10 MG TABLET PO PRN (18:54)
[2017-09-15] MEDS ORDERED: INSULIN DEGLUDEC 15 UNIT SQ SCH (19:00)
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
[2017-09-15 19:28] LABS: HEMATOCRIT 31.1 % (37.9-51.0); HEMOGLOBIN 10.6 g/dL (13.5-17.0); MEAN CORPUSCULAR HEMOGLOBIN 30.2 pg (27.0-33.4); MEAN CORPUSCULAR HGB CONC 34.1 g/dL (32.0-36.0); MEAN CORPUSCULAR VOLUME 89 fl (80-97); PLATELET COUNT 583 10^3/uL (150-450); RED BLOOD COUNT 3.52 10^6/uL (4.35-5.55); WHITE BLOOD COUNT 11.6 10^3/uL (4.0-10.5)
[2017-09-15] MEDS ORDERED: LANSOPRAZOLE 30 MG TAB.RAP.DR PO ONE (19:30)
[2017-09-15 19:45] LABS: ANION GAP 11 (5-19); BLOOD UREA NITROGEN 16 mg/dL (7-20); CALCIUM 9.1 mg/dL (8.4-10.2); CARBON DIOXIDE 28 mmol/L (22-30); CHLORIDE 97 mmol/L (98-107); GLUCOSE 201 mg/dL (75-110); POTASSIUM 4.5 mmol/L (3.6-5.0); SODIUM 135.6 mmol/L (137-145)
[2017-09-15] MEDS ORDERED: MELOXICAM 15 MG TABLET PO ONE (20:00)
[2017-09-15] MEDS: ATORVASTATIN CALCIUM 40 MG TABLET PO SCH (21:54)
[2017-09-15] MEDS ORDERED: CIPROFLOXACIN 400 MG/D5W RTU 400 MG/200 ML RTUPB IV SCH (22:00)
[2017-09-16] MEDS: AZTREONAM 1 GM in DEXTROSE 5%-WATER 50 ML IV SCH ×3 (05:07→22:31)
[2017-09-16] MEDS: HYDROMORPHONE HCL 2 MG TABLET PO PRN ×3 (05:36→20:03)
[2017-09-16] MEDS: VANCOMYCIN HCL 1,500 MG in DEXTROSE 5%-WATER 250 ML IV SCH ×3 (06:56→23:31)
[2017-09-16 06:58] LABS: HEMATOCRIT 33.6 % (37.9-51.0); HEMOGLOBIN 11.2 g/dL (13.5-17.0); MEAN CORPUSCULAR HEMOGLOBIN 29.9 pg (27.0-33.4); MEAN CORPUSCULAR HGB CONC 33.5 g/dL (32.0-36.0); MEAN CORPUSCULAR VOLUME 89 fl (80-97); PLATELET COUNT 650 10^3/uL (150-450); RED BLOOD COUNT 3.76 10^6/uL (4.35-5.55); RED CELL DISTRIBUTION WIDTH 12.6 % (11.5-14.0); WHITE BLOOD COUNT 9.1 10^3/uL (4.0-10.5)
[2017-09-16 07:17] LABS: ANION GAP 14 (5-19); BLOOD UREA NITROGEN 11 mg/dL (7-20); CALCIUM 9.8 mg/dL (8.4-10.2); CARBON DIOXIDE 26 mmol/L (22-30); CHLORIDE 95 mmol/L (98-107); GLUCOSE 322 mg/dL (75-110); SODIUM 135.2 mmol/L (137-145)
[2017-09-16 07:21] LABS: VANCOMYCIN,TROUGH 13.9 ug/mL (5.0-20.0)
[2017-09-16] MEDS: LANSOPRAZOLE 30 MG TAB.RAP.DR PO SCH (08:25)
[2017-09-16] MEDS: INSULIN LISPRO 100 UNIT/ML 3 ML VIAL SUBCUT PRN ×4 (08:25→22:33)
[2017-09-16] MEDS: INSULIN LISPRO 100 UNIT/ML 3 ML VIAL SUBCUT SCH ×3 (08:25→17:39)
[2017-09-16] MEDS ORDERED: ENOXAPARIN SODIUM INJ 40 MG/0.4 ML DISP.SYRIN SUBCUT SCH (10:00)
[2017-09-16] MEDS ORDERED: [UNRECOGNIZED DRUG - OTHER] SUBCUT SCH (10:00)
[2017-09-16] MEDS ORDERED: INSULIN DEGLUDEC SUBCUT SCH (10:00)
[2017-09-16] MEDS: MELOXICAM 15 MG TABLET PO SCH (10:35)
[2017-09-16] MEDS: ENOXAPARIN SODIUM INJ 40 MG/0.4 ML DISP.SYRIN SUBCUT SCH (10:35)
[2017-09-16] MEDS: SENNOSIDES/DOCUSATE 8.6-50 MG 1 EACH TABLET PO SCH ×2 (10:36→17:39)
[2017-09-16] MEDS: DULOXETINE HCL 30 MG CAPSULE.DR PO SCH (10:36)
[2017-09-16] MEDS: ASPIRIN 81 MG TABLET, ENT COATED PO SCH (10:37)
[2017-09-16] MEDS: TRESIBA SUBCUT SCH (10:37)
[2017-09-16] MEDS: ATORVASTATIN CALCIUM 40 MG TABLET PO SCH (22:32)
[2017-09-17] MEDS: AZTREONAM 1 GM in DEXTROSE 5%-WATER 50 ML IV SCH ×3 (05:26→21:00)
[2017-09-17] MEDS: HYDROMORPHONE HCL 2 MG TABLET PO PRN ×4 (05:26→21:02)
[2017-09-17] MEDS: VANCOMYCIN HCL 1,500 MG in DEXTROSE 5%-WATER 250 ML IV SCH ×3 (06:22→23:54)
[2017-09-17 07:04] LABS: ABSOLUTE BASOPHILS # (AUTO) 0.1 10^3/uL (0.0-0.2); ABSOLUTE EOSINOPHILS # (AUTO) 0.2 10^3/uL (0.0-0.6); ABSOLUTE LYMPHOCYTES (AUTO) 1.2 10^3/uL (0.5-4.7); ABSOLUTE MONOCYTES (AUTO) 1.2 10^3/uL (0.1-1.4); ABSOLUTE NEUT (AUTO) 5.6 10^3/uL (1.7-8.2); BASOPHILS % (AUTO) 0.8 % (0-2); EOSINOPHILS % (AUTO) 2.2 % (0-6); HEMATOCRIT 32.7 % (37.9-51.0); LYMPHOCYTES % (AUTO) 14.8 % (13-45); MEAN CORPUSCULAR HEMOGLOBIN 29.7 pg (27.0-33.4); MEAN CORPUSCULAR HGB CONC 33.6 g/dL (32.0-36.0); MEAN CORPUSCULAR VOLUME 88 fl (80-97); MONOCYTES % (AUTO) 14.8 % (3-13); PLATELET COUNT 631 10^3/uL (150-450); RED BLOOD COUNT 3.71 10^6/uL (4.35-5.55); RED CELL DISTRIBUTION WIDTH 12.8 % (11.5-14.0); SEGMENTED NEUTROPHILS % (AUTO) 67.4 % (42-78); TOTAL CELLS COUNTED % (AUTO) 100 %; WHITE BLOOD COUNT 8.3 10^3/uL (4.0-10.5)
[2017-09-17 07:17] LABS: ANION GAP 11 (5-19); BLOOD UREA NITROGEN 12 mg/dL (7-20); CALCIUM 9.7 mg/dL (8.4-10.2); CARBON DIOXIDE 27 mmol/L (22-30); CHLORIDE 99 mmol/L (98-107); GLUCOSE 181 mg/dL (75-110); POTASSIUM 4.6 mmol/L (3.6-5.0); SODIUM 136.9 mmol/L (137-145)
[2017-09-17] MEDS: INSULIN LISPRO 100 UNIT/ML 3 ML VIAL SUBCUT SCH ×3 (08:18→16:54)
[2017-09-17] MEDS: INSULIN LISPRO 100 UNIT/ML 3 ML VIAL SUBCUT PRN ×3 (08:18→16:54)
[2017-09-17] MEDS: TRESIBA SUBCUT SCH (08:18)
[2017-09-17] MEDS: LANSOPRAZOLE 30 MG TAB.RAP.DR PO SCH (08:21)
[2017-09-17] MEDS: ENOXAPARIN SODIUM INJ 40 MG/0.4 ML DISP.SYRIN SUBCUT SCH (10:41)
[2017-09-17] MEDS: SENNOSIDES/DOCUSATE 8.6-50 MG 1 EACH TABLET PO SCH ×2 (10:42→18:44)
[2017-09-17] MEDS: MELOXICAM 15 MG TABLET PO SCH (10:42)
[2017-09-17] MEDS: DULOXETINE HCL 30 MG CAPSULE.DR PO SCH (10:42)
[2017-09-17] MEDS: ASPIRIN 81 MG TABLET, ENT COATED PO SCH (10:42)
[2017-09-17] MEDS: RINGERS SOLUTION,LACTATED 1,000 ML IV PRN (13:50)
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
[2017-09-17] MEDS: ATORVASTATIN CALCIUM 40 MG TABLET PO SCH (21:01)
[2017-09-18] MEDS: HYDROMORPHONE HCL 2 MG TABLET PO PRN (06:00)
[2017-09-18] MEDS: AZTREONAM 1 GM in DEXTROSE 5%-WATER 50 ML IV SCH (06:04)
[2017-09-18 07:20] LABS: ABSOLUTE BASOPHILS # (AUTO) 0.1 10^3/uL (0.0-0.2); ABSOLUTE EOSINOPHILS # (AUTO) 0.3 10^3/uL (0.0-0.6); ABSOLUTE LYMPHOCYTES (AUTO) 1.5 10^3/uL (0.5-4.7); ABSOLUTE MONOCYTES (AUTO) 0.9 10^3/uL (0.1-1.4); ABSOLUTE NEUT (AUTO) 4.1 10^3/uL (1.7-8.2); BASOPHILS % (AUTO) 0.8 % (0-2); HEMATOCRIT 31.7 % (37.9-51.0); HEMOGLOBIN 10.7 g/dL (13.5-17.0); LYMPHOCYTES % (AUTO) 21.9 % (13-45); MEAN CORPUSCULAR HEMOGLOBIN 29.7 pg (27.0-33.4); MEAN CORPUSCULAR HGB CONC 33.7 g/dL (32.0-36.0); MEAN CORPUSCULAR VOLUME 88 fl (80-97); MONOCYTES % (AUTO) 12.6 % (3-13); PLATELET COUNT 559 10^3/uL (150-450); RED CELL DISTRIBUTION WIDTH 12.6 % (11.5-14.0); SEGMENTED NEUTROPHILS % (AUTO) 60.7 % (42-78); TOTAL CELLS COUNTED % (AUTO) 100 %; WHITE BLOOD COUNT 6.8 10^3/uL (4.0-10.5)
[2017-09-18 07:50] LABS: ANION GAP 11 (5-19); BLOOD UREA NITROGEN 13 mg/dL (7-20); CALCIUM 9.4 mg/dL (8.4-10.2); CARBON DIOXIDE 26 mmol/L (22-30); CHLORIDE 102 mmol/L (98-107); GLUCOSE 244 mg/dL (75-110); POTASSIUM 4.4 mmol/L (3.6-5.0); SODIUM 138.9 mmol/L (137-145)
[2017-09-18] MEDS: ENOXAPARIN SODIUM INJ 40 MG/0.4 ML DISP.SYRIN SUBCUT SCH (09:30)
[2017-09-18] MEDS: ASPIRIN 81 MG TABLET, ENT COATED PO SCH (09:31)
[2017-09-18] MEDS: DULOXETINE HCL 30 MG CAPSULE.DR PO SCH (09:31)
[2017-09-18] MEDS: TRESIBA SUBCUT SCH (09:32)
[2017-09-18] MEDS: LANSOPRAZOLE 30 MG TAB.RAP.DR PO SCH (09:33)
[2017-09-18] MEDS: SENNOSIDES/DOCUSATE 8.6-50 MG 1 EACH TABLET PO SCH (09:34)
[2017-09-18] MEDS: MELOXICAM 15 MG TABLET PO SCH (09:34)
[2017-09-18] MEDS: INSULIN LISPRO 100 UNIT/ML 3 ML VIAL SUBCUT SCH (09:35)
[2017-09-18] MEDS: VANCOMYCIN HCL 1,500 MG in DEXTROSE 5%-WATER 250 ML IV SCH (09:36)
[2017-09-18 11:31] VITALS: BP 131/74
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
== END 2017-09-18 11:49 | disposition home or self-care (01) | DRG 871 ==
LOC: ER 06:51 → EH 10:06 → 5 16:21
PROVIDERS: ADMIT Internal Medicine; ATTEND Internal Medicine
DX: A41.9 Sepsis, unspecified organism (principal); J18.9 Pneumonia, unspecified organism; N39.0 Urinary tract infection, site not specified; S22.41XG Multiple fractures of ribs, right side, subsequent encounter for fracture with delayed healing; I10 Essential (primary) hypertension; E10.9 Type 1 diabetes mellitus without complications; M19.90 Unspecified osteoarthritis, unspecified site; Z88.6 Allergy status to analgesic agent; Z88.0 Allergy status to penicillin; Z87.828 Personal history of other (healed) physical injury and trauma; Z79.4 Long term (current) use of insulin; Z79.82 Long term (current) use of aspirin
CPT/HCPCS: 36415; 71045; 71275; 80048; 80053; 80202; 81001; 82550; 82803; 82962; 83605; 84484; 85025; 85027; 85610; 87040; 87086; 93005; 93010; 96365; 96367; 99291; J0692; J1650; J1815; J3370; J3490; J7030; J7060; J7120